=== PATIENT | female | born 1990 | race Caucasian/White ===

== ENCOUNTER → 2017-03-21 | Outpatient (CLI) | payer BC ==
[2015-01-30 10:56] VITALS: BMI 28.9
[~2017-03-21] MED LIST: Benzocaine 60 ML TP; DOCU240C67 PO; IBUP800T37 PO; Lanolin TP; ONDA4TAB PO; PREN-75 PO; SERT-1 PO; SUMA50TA34 PO; TUCKS TOP; [UNRECOGNIZED DRUG - REMARK]; [UNRECOGNIZED DRUG - REMARK]
--- NOTE | 2017-03-23 17:03 | RT HOLTER TEST ---
FACILITY: [facility] - [place] PATIENT NAME: MARIA T VIRK : [id number] MR: [id number] V: [id number] EXAM DATE: ORDERING PHYSICIAN: RAH WHITE TECHNOLOGIST: ERICA Hook-up date: 2017-03-21 13:13:00 Duration: 47:32:00 Test Indications: Medications: [id number] QRS complexes 1 Ventricular ectopics which represent <1 % of total QRS comp. 3 Supraventricular ectopics which represent <1 % of total QRS comp. * Paced QRS complexes which represent % of total QRS comp. VENTRICULAR ECTOPY 1 Isolated 0 Bigeminal Cycles 0 Couplets 0 Runs 0 Beats in Runs * Beats LONGEST at * BPM at :: -- * Beats FASTEST at * BPM at :: -- SUPRAVENTRICULAR ECTOPY 3 Isolated 0 Couplets 0 Runs 0 Beats in Runs * Beats LONGEST at * BPM at :: -- * Beats FASTEST at * BPM at :: -- HEART RATES 45 MIN at 02:02:45 2017-03-22 80 AVG 153 MAX at 12:30:22 2017-03-23 LONGEST RR 1.664 secs at 05:09:51 2017-03-22 S-T LEVELS Channel 1 -12.800 mm MIN at 13:13:00 2017-03-21 -12.800 mm MAX at 13:13:00 2017-03-21 Channel 2 -12.800 mm MIN at 13:13:00 2017-03-21 -12.800 mm MAX at 13:13:00 2017-03-21 Channel 3 -12.800 mm MIN at 13:13:00 2017-03-21 -12.800 mm MAX at 13:13:00 2017-03-21 Very rare supraventricular ectopy. No couplets, triplets, or runs. Essentially no ventricular ectopy was recorded. The one strip appears to be artifact. Sinus tachycardia was noted during usual waking hours and sinus bradycardia during usual sleeping david rs. No pauses were recorded. Confirmed by CHANDRAKANT SORIANO ([id number]) on 03/23/2017 5:02:27 PM Referred By: Overread By: CHANDRAKANT SORIANO
== END ==
LOC: RESP 06:56
PROVIDERS: ATTEND Nurse Practitioner Primary Care
DX: R42 Dizziness and giddiness (principal)

== ENCOUNTER → 2017-03-23 | Outpatient (CLI) | payer BC ==
[2015-01-30 10:56] VITALS: BMI 28.9
[~2017-03-23] MED LIST changes: +TRIA15CR40 TP
--- NOTE | 2017-03-25 10:12 | RADIOLOGY IMAGING REPORT ---
FACILITY: [facility] - [place] PATIENT NAME: MARIA T VIRK : [id number] MR: [id number] V: [id number] EXAM DATE: ORDERING PHYSICIAN: RAH WHITE TECHNOLOGIST: Latanya Rios EXAMINATION:TWO-DIMENSIONAL ECHOCARDIOGRAPH REASON:CHEST PAIN, SHORTNESS OF BREATH, FATIGUE AND DIZZINESS. 2D Measurements (normal values in centimeters) LV endLV endRV endVent.LV PostAorticLeftPercent DiastolicSystolicDiastolicSeptumWallRootAtriumShortening (3.5-5.7)(0.9-2.6)(0.6-1.1)(0.6-1.1)(2.0-3.7)(1.9-4.0)(25-35%) [id number]% STROKE VOLUME: 37.6 mL ESTIMATED EJECTION FRACTION:61% PARASTERNAL LONG AXIS: Overall left ventricular function appears to be normal and chamber sizes also appear to be normal. No wall motion abnormalities. Color examination of the valves reveals only a trace of mitral insufficiency present. PARASTERNAL SHORT AXIS: Overall left ventricular function appears to be normal. No wall motion abnormalities are noted. Aortic valve was trileaflet in configuration and appears to open normally. Color examination of the pulmonic valve reveals a trace of pulmonic insufficiency. There is also a trace of tricuspid insufficiency present. APICAL FOUR AND TWO CHAMBER: Normal left ventricular ejection fraction and normal chamber sizes. Aortic valve area and mitral valve area both measure within normal range at 1.9 and 2.1 cm2 respectively. Left atrial volume and right atrial volume are measured within normal ranges at 19 and 18 ml/m2. Tricuspid regurgitation V-max is measured at 1.48 m/sec. Estimated right atrial pressure is 3 mmHg. SUBCOSTAL VIEW: No pericardial effusion was noted. No atrial septal or ventricular septal defects were appreciated. Doppler examination of the mitral valve in diastole does revealed normal pattern with normal medial and lateral E prime velocities. OVERALL IMPRESSION: 1. Essentially normal 2-Dimensional echocardiograph. Normal left ventricular systolic and diastolic function with an ejection fraction of 61% 2. Normal chamber sizes. 3. A trileaflet aortic valve with no abnormalities. 4. Trace of mitral, tricuspid and pulmonic insufficiency with normal right ventricular systolic pressures totaling 12 mmHg which does include an estimated right atrial pressure of 3 mmHg. 5. No atrial septal or ventricular septal defects were noted but an agitated saline bubble contrast study was not done. Dictated by: Benito Way M.D. on 03/24/2017 at 17:38 Transcribed by: KELVIN on 03/24/2017 at 18:47 Approved by: Benito Way M.D. on 03/25/2017 at 10:11 [facility]
== END ==
LOC: US 02:27
PROVIDERS: ATTEND Nurse Practitioner Primary Care
DX: I34.0 Nonrheumatic mitral (valve) insufficiency (principal); I07.1 Rheumatic tricuspid insufficiency; I37.1 Nonrheumatic pulmonary valve insufficiency
CPT/HCPCS: 93306

== ENCOUNTER → 2017-10-17 | Outpatient (CLI) | payer BC ==
[2015-01-30 10:56] VITALS: BMI 28.9
[~2017-10-17] MED LIST changes: +GADOBENATE 529MG/1ML 15ML VIAL IVP ONE; +MECL25TA9 PO; -PREN-75 PO; +PREN1TAB29 PO; +[UNRECOGNIZED DRUG - REMARK]
--- NOTE | 2017-10-17 11:00 | RADIOLOGY IMAGING REPORT ---
FACILITY: [facility] - [place] PATIENT NAME: Mo Moreno : 1990 MR: [id number] V: [id number] EXAM DATE: ORDERING PHYSICIAN: RAH WHITE TECHNOLOGIST: Location: [facility] Patient: Mo Moreno : 1990 Visit/Account:[id number] Date of Sevice: 10/17/2017 EXAMINATION: MRI brain without IV contrast MRI brain with IV contrast HISTORY: Dizziness. Nausea and migraines. COMPARISON: None. TECHNIQUE: Multi-planar, multi-sequence brain MRI was performed before and after IV gadolinium. CONTRAST: 15 mL of IV MultiHance gadolinium. FINDINGS: Brain volume: Normal. Sagittal midline structures: Sagittal midline structures are normally formed. The cerebellar tonsils are normal in position. Ventricles: Normal. Acute ischemic changes: No diffusion restriction present to suggest acute ischemia. Hemorrhage: No acute hemorrhage or hemosiderin staining. Masses/edema: None. Enhancement: No abnormal intracranial enhancement. Jules-white: Negative. White matter: Normal. Vessels: Normal. Extra-axial: None. Calvarium/scalp: Negative. Skull base: Negative. Visualized sinuses/orbits: Negative. Visualized upper neck: Negative. IMPRESSION: Normal enhanced brain MRI without intracranial mass lesion, acute infarct or hemorrhage. Report Dictated By: Citlalli Blake MD at 10/17/2017 10:48 AM Report E-Signed By: Citlalli Blake MD at 10/17/2017 10:57 AM WSN:[id number]
== END ==
LOC: MRI 02:47
PROVIDERS: ATTEND Nurse Practitioner Primary Care
DX: R42 Dizziness and giddiness (principal)
CPT/HCPCS: 70553; A9577

== ENCOUNTER → 2017-10-21 | Outpatient (CLI) | payer BC ==
[2015-01-30 10:56] VITALS: BMI 28.9
[~2017-10-21] MED LIST changes: -GADOBENATE 529MG/1ML 15ML VIAL IVP ONE; +PROP40TA45 PO
== END ==
LOC: LAB 09:32
PROVIDERS: ATTEND Nurse Practitioner Primary Care
DX: Z02.9 Encounter for administrative examinations, unspecified (principal)

== ENCOUNTER → 2017-10-21 | Outpatient (CLI) | payer BC ==
[2015-01-30 10:56] VITALS: BMI 28.9
[2017-10-21 10:36] LABS: PLATELET COUNT, AUTOMATED 236 K/uL (150-450)
== END ==
LOC: LAB 09:33
PROVIDERS: ATTEND Nurse Practitioner Primary Care
DX: R53.83 Other fatigue (principal)
CPT/HCPCS: 36415; 82040; 82247; 82306; 82310; 82374; 82435; 82565; 82607; 82728; 82746; 82947; 83540; 83550; 84075; 84132; 84155; 84295; 84439; 84443; 84450; 84460; 84520; 85025

== ENCOUNTER 2017-10-28 07:05 | Outpatient (CLI) | payer BC ==
[2015-01-30 10:56] VITALS: BMI 28.9
[2017-10-28] VITALS (26 sets, daily range): BP systolic 84–105; BP diastolic 54–79
[~2017-10-28 07:05] MED LIST changes: +NS(*) 0.9% 1000 ML BAG 1,000 ML IV ONE
[2017-10-28] MEDS ORDERED: NITROGLYCERIN 0.4 MG SUBL SL ONE (09:00)
[2017-11-01] MEDS ORDERED: ONDA8TAB91 PO (10:52)
== END 2017-10-28 09:20 | disposition home or self-care (01) ==
LOC: ICU OUTPT 07:05 → ICU 07:05 → ICU OUTPT 09:20
PROVIDERS: ATTEND Nurse Practitioner Primary Care
DX: R42 Dizziness and giddiness (principal); R53.83 Other fatigue; R63.5 Abnormal weight gain; R51 Headache

== ENCOUNTER 2018-02-24 07:19 | Outpatient (RCR) | payer BC ==
[2015-01-30 10:56] VITALS: BMI 28.9
[~2018-02-24 07:19] MED LIST changes: -NS(*) 0.9% 1000 ML BAG 1,000 ML IV ONE; +ONDA8TAB91 PO
[2018-02-24] MEDS ORDERED: DEXTROSE 5%(*) 100 ML BAG 100 ML IVPB PRN (09:05)
[2018-02-24] MEDS ORDERED: LIDOCAINE/SOD BICARB 8.4% SYR ID PRN (09:05)
[2018-02-24] MEDS ORDERED: NS(*) 0.9% 100 ML BAG 100 ML IVPB PRN (09:05)
[2018-02-24 09:40] VITALS: BP 118/52
[2018-02-24] MEDS ORDERED: COSYNTROPIN 0.25 MG/ML VIAL IVP ONE (09:55)
[2018-02-24 10:18] LABS: PLATELET COUNT, AUTOMATED 289 K/uL (150-450)
== END 2018-03-27 08:06 | disposition home or self-care (01) ==
LOC: SPU 07:19
PROVIDERS: ATTEND Emergency Medicine
DX: R55 Syncope and collapse (principal)
CPT/HCPCS: 36415; 81256; 82533; 83540; 83550; 83970; 85025; 85379; 86140; 96374; J0834; 82040; 82247; 82310; 82374; 82435; 82565; 82947; 84075; 84132; 84155; 84295; 84450; 84460; 84520